=== PATIENT | female | born 1985 | race Caucasian/White ===

== ENCOUNTER 2020-10-30 22:05 | Emergency (ER) | payer BC ==
[2020-10-30] MEDS ORDERED: CLARITIN 1010 MG/TAB PO (23:21)
[2020-10-30] MEDS ORDERED: PRENATAL TABLE1 EAC1 PO (23:21)
[2020-10-31 00:24] LABS: BASO # 0.03 (0.02-0.10); EOS # 0.11 (0.04-0.40); EOS % 1.2 % (1.0-5.0); HEMATOCRIT 35.8 % (37.0-47.0); HEMOGLOBIN 11.1 g/dL (12.5-16.0); LYMPH# 2.31 (1.50-4.00); MEAN CELL VOLUME 82 fl (78-100); MEAN CORPUSCULAR HEMOGLOBIN 25 pg (27-31); MEAN CORPUSCULAR HGB CONC 31 g/dL (33-37); NEU # 6.12 (1.40-6.50); PLATELET COUNT 292 K/mm3 (130-400); RED BLOOD COUNT 4.37 M/mm3 (4.10-5.30); RED CELL DISTRIBUTION WIDTH 16.2 % (11.5-14.5); WHITE BLOOD COUNT 9.2 K/mm3 (4.8-10.8)
[2020-10-31 00:30] LABS: ALBUMIN 3.8 g/dL (3.5-5.0); POTASSIUM 3.8 mmol/L (3.5-5.1)
[2020-10-31 00:31] LABS: CALCIUM 9.3 mg/dL (8.3-10.5)
[2020-10-31 00:32] LABS: TOTAL PROTEIN 6.7 g/dL (6.4-8.3)
[2020-10-31 00:34] LABS: TOTAL BILIRUBIN 0.3 mg/dL (0.2-1.2)
[2020-10-31 02:34] LABS: URINE WBC 0 /hpf (0-3)
[2020-10-31 02:47] LABS: URINE APPEARANCE HAZY; URINE BILIRUBIN NEGATIVE (NEGATIVE); URINE BLOOD TRACE (NEGATIVE); URINE COLOR YELLOW; URINE GLUCOSE NEGATIVE (NEGATIVE); URINE KETONE 1+ (NEGATIVE); URINE LEUKOCYTE ESTERASE NEGATIVE (NEGATIVE); URINE NITRATE NEGATIVE (NEGATIVE); URINE PROTEIN(semi-quant) NEGATIVE (NEGATIVE); URINE UROBILINOGEN NORMAL (NORMAL)
[2020-10-31 04:01] VITALS: BP 151/94
== END 2020-10-31 04:10 | disposition home or self-care (01) ==
LOC: ED 22:05
PROVIDERS: Nurse Practitioner Family
DX: O03.9 Complete or unspecified spontaneous abortion without complication (principal)
CPT/HCPCS: J2270; J2405; J7030